=== PATIENT | female | born 1980 | race Two or more races ===

== ENCOUNTER 2024-03-13 07:42 | Day surgery (SDC) | payer OTHER ==
[2024-03-04 11:06] VITALS: BP 117/81
[~2024-03-13] VITALS: Ht 170.2 cm; Wt 87.5 kg
[~2024-03-13 07:42] MED LIST: GRALISE600 MG PO; MULTI VITAMIN1 EACH PO; PERCOCET 10-321 EACH PO
[2024-03-13] MEDS ORDERED: CEFAZOLIN SODIUM 1,000 MG VIAL ONE (13:07)
[2024-03-13] MEDS ORDERED: LIDOCAINE HCL 1%/EPINEPHRINE 20ML VIAL IJ ONE ×2 (13:26→14:30)
[2024-03-13] MEDS ORDERED: LIDOCAINE HCL 1% 20 ML VIAL IJ ONE ×2 (13:34→13:42)
[2024-03-13] MEDS ORDERED: LIDOCAINE HCL 1% 10ML VIAL IJ ONE ×2 (14:30)
[2024-03-13] MEDS ORDERED: CEFAZOLIN SODIUM 1,000 MG VIAL IV SCH (14:30)
[2024-03-13] MEDS ORDERED: MORPHINE SULFATE 4 MG/ML VIAL IV ONE (14:35)
== END 2024-03-13 15:00 | disposition home or self-care (01) ==
LOC: CIR.AMB 07:42
PROVIDERS: ATTEND Surgery
DX: D21.6 Benign neoplasm of connective and other soft tissue of trunk, unspecified (principal); M19.90 Unspecified osteoarthritis, unspecified site; F41.9 Anxiety disorder, unspecified; G47.30 Sleep apnea, unspecified

== ENCOUNTER 2024-10-10 17:15 | Emergency (ER) | payer OTHER ==
[~2024-10-10] VITALS: Ht 170.2 cm; Wt 86.2 kg
[2024-10-10] MEDS ORDERED: KETO10TA2 PO (18:45)
[2024-10-10] MEDS ORDERED: CYCLOBENZAPRINE5 MG PO (18:46)
[2024-10-10] MEDS ORDERED: RINGERS SOLUTION,LACTATED 1,000 ML IV STA (19:18)
[2024-10-10] MEDS ORDERED: MORPHINE SULFATE 4 MG/ML VIAL IV STA (19:19)
[2024-10-10] MEDS ORDERED: CEFTRIAXONE SODIUM 2,000 MG VIAL IV STA (19:19)
[2024-10-10] MEDS ORDERED: CEFTRIAXONE SODIUM 2,000 MG VIAL ONE (19:49)
[2024-10-10 19:56] LABS: BASO % 0.2 % (0.1-1.2); EOS # 0.25 (0.04-0.54); EOS % 2.6 % (0.7-7.0); LYMPH # 3.58 (1.18-3.74); LYMPH % 37.1 % (19.3-53.1); MEAN PLATELET VOLUME 9.00 fl (9.4-12.4); MONO # 0.60 (0.24-0.82); MONO % 6.2 % (4.7-12.5); NEUT # 5.17 (1.56-6.13); NEUT % 53.5 % (34.0-71.1); RED CELL DISTRIBUTION WIDTH 13.8 % (11.6-14.4)
[2024-10-10 20:05] LABS: URINE APPEARANCE Clear; URINE BILIRRUBIN Negative (NEGATIVE); URINE BLOOD Negative; URINE COLOR Yellow; URINE GLUCOSE Negative (NEGATIVE); URINE KETONE Negative (NEGATIVE); URINE LEUKOCYTE Negative; URINE NITRATE Negative; URINE PROTEIN Negative (NEGATIVE); URINE UROBILINOGEN 0.2 E.U./dl
[2024-10-10 20:09] LABS: URINE BACTERIA 271.1 uL (0.0-1933); URINE EPITHELIAL CELLS 16.2 uL (0.0-38.8); URINE RBC 2.7 uL (0.0-20.8); URINE WBC 4.9 uL (0.0-23.2)
[2024-10-10 20:11] LABS: INR 1.01
[2024-10-10 20:16] LABS: BUN CREA RATIO 14 (7.0-25.0); CREATININE SERUM 0.65 mg/dL (0.55-1.02); GFR 99.48; GLUCOSE FASTING 88 mg/dL (65-100); OSMOLALITY SERUM 281 MOSM/KG (275-295)
[2024-10-10 20:21] LABS: URINE CAST 0.00 uL (0.0-1.40)
[2024-10-10] MEDS ORDERED: PIPERACILLIN/TAZOBACTAM SODIUM 3.375 GM VIAL IV STA (22:32)
[2024-10-10] MEDS ORDERED: PIPERACILLIN/TAZOBACTAM SODIUM 3.375 GM VIAL IV ONE (22:38)
[2024-10-11] MEDS ORDERED: TRAMADOL HCL 50 MG TABLET PO STA (01:18)
== END 2024-10-11 01:37 | disposition home or self-care (01) ==
LOC: ER 17:15
PROVIDERS: Emergency Medicine
DX: L03.311 Cellulitis of abdominal wall (principal); L02.91 Cutaneous abscess, unspecified
CPT/HCPCS: 36415; 74177; 96365; 99284; J0696; J2270; J2543; Q9965